=== PATIENT | male | born 1965 | race Caucasian/White ===

== ENCOUNTER 2016-04-06 14:45 | Outpatient (CLI) | payer OTHER ==
[2016-04-06 15:50] LABS: BASOPHILS % 0.5 (0.0-1.5); EOSINOPHILS % 0.6 % (0.0-6.8); LYMPHOCYTES # 2.8 # k/uL (0.6-4.0); MEAN CORPUSCULAR HEMOGLOBIN 32.7 pg (28.0-34.0); MONOCYTES # 0.8 # k/uL (0.0-0.9); MONOCYTES % 8.2 % (0.0-11.0); NEUTROPHILS # 5.3 # k/uL (1.4-7.7)
[2016-04-06 22:02] LABS: MAGNESIUM 1.6 mg/dL (1.6-2.6)
[2016-04-10 04:40] LABS: BK copy/mL <390 cpy/mL
== END 2016-04-06 14:55 ==
LOC: NEPHRO 14:45
PROVIDERS: ATTEND Internal Medicine Nephrology
DX: Z48.22 Encounter for aftercare following kidney transplant (principal)
CPT/HCPCS: 36415; 80053; 83036; 83735; 84100; 85025; 87497; 87799; 99213

== ENCOUNTER 2016-05-04 16:07 | Outpatient (CLI) | payer OTHER ==
[2016-05-04 17:19] LABS: eGFR (African) > 60; eGFR (Non-African) > 60
== END 2016-05-04 16:10 ==
LOC: NEPHRO 16:07
PROVIDERS: ATTEND Internal Medicine Nephrology
DX: Z94.0 Kidney transplant status (principal); E11.9 Type 2 diabetes mellitus without complications; I10 Essential (primary) hypertension
CPT/HCPCS: 36415; 80053; 83036; 99213

== ENCOUNTER 2016-08-03 14:05 | Outpatient (CLI) | payer OTHER ==
[2016-08-03 14:46] LABS: BASOPHILS % 0.9 (0.0-1.5); EOSINOPHILS % 1.2 % (0.0-6.8); MEAN CORPUSCULAR HEMOGLOBIN 33.1 pg (28.0-34.0); MONOCYTES % 4.6 % (0.0-11.0)
[2016-08-03 14:49] LABS: APPEARANCE,URINE Clear (CLEAR); COLOR,URINE Yellow (YELLOW); OCCULT BLOOD,URINE Negative (NEGATIVE); PH URINE 5.5 (5.0 - 8.0); UROBILINOGEN URINE 0.2 Eu (0.2-1.0)
[2016-08-03 15:06] LABS: eGFR (African) > 60; eGFR (Non-African) > 60
== END 2016-08-03 14:06 ==
LOC: NEPHRO 14:05
PROVIDERS: ATTEND Internal Medicine Nephrology
DX: Z94.0 Kidney transplant status (principal); E11.9 Type 2 diabetes mellitus without complications
CPT/HCPCS: 36415; 80053; 81002; 82043; 83036; 85025; G0463; 99213

== ENCOUNTER 2016-11-30 13:46 | Outpatient (CLI) | payer OTHER | END 2016-11-30 13:47 | LOC: NEPHRO 13:46 | PROVIDERS: ATTEND Internal Medicine Nephrology | DX: N18.9 Chronic kidney disease, unspecified (principal) | CPT/HCPCS: 99213 ==

== ENCOUNTER 2016-11-30 14:33 | Outpatient (CLI) | payer OTHER ==
[2016-11-30 14:51] LABS: EOSINOPHILS % 2.1 % (0.0-6.8); MEAN CORPUSCULAR HEMOGLOBIN 33.2 pg (28.0-34.0); MEAN CORPUSCULAR VOLUME 97.4 fl (80.0-100.0); MONOCYTES % 3.8 % (0.0-11.0)
[2016-11-30 14:59] LABS: APPEARANCE,URINE Clear (CLEAR); COLOR,URINE Amber (YELLOW); OCCULT BLOOD,URINE Negative (NEGATIVE); PH URINE 5.5 (5.0 - 8.0); UROBILINOGEN URINE 0.2 Eu (0.2-1.0)
[2016-11-30 16:34] LABS: eGFR (African) > 60; eGFR (Non-African) > 60
[2016-12-01 02:14] LABS: MAGNESIUM 1.8 mg/dL (1.6-2.6)
== END 2016-11-30 14:34 ==
LOC: LAB 14:33
PROVIDERS: ATTEND Internal Medicine Nephrology
DX: N18.9 Chronic kidney disease, unspecified (principal)
CPT/HCPCS: 36415; 80053; 81002; 82043; 83036; 83735; 84100; 85025

== ENCOUNTER 2017-05-31 13:46 | Outpatient (CLI) | payer OTHER | END 2017-05-31 13:48 | LOC: NEPHRO 13:46 | PROVIDERS: ATTEND Internal Medicine Nephrology | DX: Z94.0 Kidney transplant status (principal); E11.9 Type 2 diabetes mellitus without complications | CPT/HCPCS: 99213 ==

== ENCOUNTER 2017-11-15 13:58 | Outpatient (CLI) | payer OTHER | END 2017-11-15 14:00 | LOC: NEPHRO 13:58 | PROVIDERS: ATTEND Internal Medicine Nephrology | DX: Z94.0 Kidney transplant status (principal) | CPT/HCPCS: 99213 ==

== ENCOUNTER 2017-11-29 10:20 | Outpatient (CLI) | payer OTHER ==
[2017-11-29 10:59] LABS: APPEARANCE,URINE CLEAR (CLEAR); COLOR,URINE YELLOW (YELLOW); OCCULT BLOOD,URINE NEGATIVE (NEGATIVE); PH URINE 6.5 (5.0 - 8.0); UROBILINOGEN URINE 0.2 Eu (0.2-1.0)
[2017-11-29 11:19] LABS: eGFR (Non-African) > 60
[2017-11-29 20:31] LABS: BASO % 0.6 % (0.0-1.5); EOS % 2.3 % (0.0-6.8); LYMPH ABS # 4.07 thou/uL (0.60-4.00); MCH. 31.6 pg (28.0-34.0); MCV 98.4 fL (80.0-100.0); MONOCYTE % 5.6 % (0.0-11.0); MONOCYTE ABS # 0.62 thou/uL (0.00-0.90); PLATELET COUNT 432 thou/uL (130-400)
[2017-11-30 11:12] LABS: PROTEIN mg/dL <4 mg/dL
== END 2017-11-29 10:22 ==
LOC: LAB 10:20
PROVIDERS: ATTEND Internal Medicine Nephrology
DX: Z94.0 Kidney transplant status (principal)
CPT/HCPCS: 80053; 81002; 83735; 83970; 84100; 85025